=== PATIENT | female | born 1975 | race Caucasian/White ===

== ENCOUNTER 2020-11-14 18:18 | Emergency (ER) | payer OTHER, SELFPAY ==
[2020-11-14 18:29] VITALS: BP 131/93; PULSE 90; RESP 16; TEMP 36.3; O2SAT 100
--- NOTE | 2020-11-14 18:37 | ED.URI ---
HPI - URI/Sore Throat General Chief Complaint: Upper Respiratory Infection Stated Complaint: Cough,Runny nose,headache Time Seen by Provider: 11/14/20 18:43 Source: patient and RN notes reviewed Mode of arrival: ambulatory Limitations: no limitations History of Present Illness HPI Narrative: 44-year-old female presents with concern for 8-day history of sinus congestion, drainage, pressure, ear pain, cough. Reports 3 days ago she had fever, body aches, chills. Has not had a fever since then. Reports she is taking [id number] medication such as DayQuil and NyQuil with little relief. Reports she has had 2 negative Covid test. She has not been vaccinated for Covid. She denies shortness of breath, trouble breathing. MD elicited complaint: cough Related Data Allergies Allergy/AdvReac Type Severity Reaction Status Date / Time No Known Allergies Allergy Mild Unverified 07/21/11 15:35 Review of Systems Review of Systems: CONSTITUTIONAL: Reports malaise. Denies chills, sweats, or fever. EYES: Denies visual changes, redness, or discharge. ENT: Reports rhinorrhea, congestion, sinus pain, otalgia. Denies sore throat. CARDIOVASCULAR: Denies chest pain, palpitations, or edema. RESPIRATORY: Reports persistent cough. Denies dyspnea. GASTROINTESTINAL: Denies abdominal pain, nausea, vomiting, diarrhea SKIN: Denies rash or itching. MUSCULOSKELETAL: Denies myalgia. NEUROLOGIC: Reports headache. All systems reviewed & are unremarkable except as noted in HPI and below PMFSH Comments At time of signature, agree with nursing past medical, surgical, social and family history. There is no relevant family history pertinent to the presenting complaint Exam Narrative: GENERAL: Well-appearing, well-nourished, and in no acute distress. HEAD: Normocephalic EYES: PERRLA, conjunctivae clear ENT: Nares clear, turbinates erythematous. Mucous membranes moist. TM pearly garcia with dull light reflex bilaterally; no tragal tenderness. Oropharynx not erythematous without lesions. Tonsils not enlarged and without exudate, no drooling, no hoarseness, no trismus, uvula midline. NECK: Supple. No lymphadenopathy CHEST: Scattered rhonchi that mostly clears with coughing, scattered inspiratory and expiratory wheeze, breath sounds equal. No rales, or stridor. No respiratory distress, speaks in full sentences. HEART: Regular rate and rhythm. No murmur heard. SKIN: Warm, dry, no rash. NEURO: Alert and oriented x3. PSYCH: Normal mood and affect Course Course Emergency Course: Patient is aware of diagnosis, understands and agrees to treatment plan. Anticipatory guidance given. Patient agrees to follow-up as directed and is aware of reasons to seek care at the emergency department. Portions of this record may have been created with voice recognition software Vital Signs Vital signs: Vital Signs Temperature 97.3 F L 11/14/20 18:29 Pulse Rate 90 11/14/20 18:29 Respiratory Rate 16 11/14/20 18:29 Blood Pressure 131/93 H 11/14/20 18:29 Pulse Oximetry 100 11/14/20 18:29 Temperature 97.3 F L 11/14/20 18:29 Pulse Rate 90 11/14/20 18:29 Respiratory Rate 16 11/14/20 18:29 Blood Pressure 131/93 H 11/14/20 18:29 Pulse Oximetry 100 11/14/20 18:29 Reviewed. Patient has been instructed to follow up with her primary care provider within the next week regarding her elevated blood pressure today. MDM - URI/Sore Throat MDM Narrative Medical decision making narrative: Differential diagnosis considered: Simon virus, strep pharyngitis, allergic rhinitis, upper respiratory tract infection, sinusitis, rhinosinusitis, nasopharyngitis. viral pharyngitis, otitis media, otitis externa, pneumonia, bronchitis, viral cough syndrome, viral syndrome, and influenza. Exam findings show no acute concerns or changes; patient is non-toxic appearing and is in no distress. Patient is appropriate for outpatient treatment and follow-up. Critical Care Time Critical Care Ti
== END 2020-11-14 18:54 | disposition home or self-care (01) ==
PROVIDERS: Emergency Provider Nurse Practitioner
DX: J32.9 Chronic sinusitis, unspecified (principal); J40 Bronchitis, not specified as acute or chronic
CPT/HCPCS: 99213; G0463

== ENCOUNTER 2022-02-08 13:21 | Emergency (ER) | payer OTHER, SELFPAY ==
[2022-02-08 13:29] VITALS: BP 128/67; PULSE 92; RESP 18; TEMP 36.9; O2SAT 97
--- NOTE | 2022-02-08 13:50 | ED.GENADULT ---
HPI - General Adult General Chief complaint: Unspecified Stated complaint: left side pain/sob Time Seen by Provider: 02/08/22 13:50 Source: patient, RN notes reviewed and old records reviewed Mode of arrival: ambulatory Limitations: no limitations History of Present Illness HPI narrative: 46-year-old female presents to the [facility] with complaints left side pain, left flank pain that started 2-3 days ago and has been gradually getting worse. Patient is also reporting shortness of breath. To go home test for COVID a week ago and states that she was positive. Her 5 day quarantine was over yesterday. Reports nausea and headache as well. No fevers. Onset (ago): day(s) (2-3) Related Data Home Medications Medication Instructions Recorded Confirmed No Home Medications 02/08/22 02/08/22 Allergies Allergy/AdvReac Type Severity Reaction Status Date / Time No Known Allergies Allergy Mild Unverified 02/08/22 16:13 Review of Systems Review of Systems: All systems reviewed & are unremarkable except as noted in HPI and below Constitutional: Constitutional: Reports no additional constitutional complaints Eyes: Eyes: Reports no additional eye complaints ENT: Reports system reviewed and no additional complaints, except as documented Cardiovascular: Cardiovascular: Reports no additional cardiovascular complaints, Denies chest pain and Denies dyspnea Respiratory: Respiratory: Reports as per HPI, Reports no additional respiratory complaints, Denies chest congestion, Reports cough and Reports dyspnea Gastrointestinal: Gastrointestinal: Reports as per HPI, Reports no additional gastrointestinal complaints, Reports abdominal pain (Left flank, left-sided abdominal upper and lower), Denies nausea and Denies vomiting Musculoskeletal: Musculoskeletal: Reports no additional musculoskeletal complaints Integumentary/Breasts: Skin/Breast: Reports system reviewed and no additional complaints, except as docu Neurologic: Reports system reviewed and no additional complaints, except as documented Psychiatric: Psychiatric: Reports no additional psychiatric complaints Allergic/Immunologic: Allergic/Immunologic: Reports no additional allergic/immunologic complaints PMFSH Surgical History Surgical History Hx of cholecystectomy Social History Social History Gender identity (if verbalized by the patient): Female Comments At the time of my signature, I reviewed and agree with the nursing past medical, surgical, social, and family history. There is no relevant family history pertinent to the patient complaint. Exam Const: General: cooperative, well developed, alert, in distress mild (Pain), ill appearing acutely, uncomfortable, well groomed, average body habitus and well nourished Nutritional Appearance: well nourished and obese Orientation/consciousness: patient oriented x3 Limitations: no limitations HENMT: Head: normal to inspection Ears: hearing grossly normal bilaterally and external ears normal Face/Nose/Sinus: Normal external nose present, Normal nares present, Normal nasal mucous membranes and turbinates present and normal facial exam Face and sinus: normal facial exam Mouth: Yes Normal oral and palatal mucosa present, Yes lip normal and Yes moist mucous membranes Throat: posterior oropharynx normal and uvula midline Eyes: General: appearance normal, both eyes and all related structures Alignment and Position: alignment normal Periorbital: periorbital findings normal Conjunctivae: conjunctivae normal Pupils: Equal, round and reactive pupils present EOM: EOMs intact bilaterally Neck: Neck: normal visual inspection, full ROM, no lymphadenopathy and no meningeal signs Chest: Chest palpation & inspection: normal inspection of the chest Resp: Effort & Inspection: normal respiratory effort and able to speak in complete
== END 2022-02-08 14:02 | disposition short-term general hospital (02) ==
LOC: EXPCOLL 13:23
PROVIDERS: Emergency Provider Nurse Practitioner
DX: R10.9 Unspecified abdominal pain (principal); Z86.16 Personal history of COVID-19
CPT/HCPCS: 99212; G0463

== ENCOUNTER 2022-02-08 15:45 | Emergency (ER) | payer OTHER, SELFPAY ==
--- NOTE | ~2022-02-08 | CT_ITS ---
EXAMINATION: CTA chest PE abdomen pel DATE: 02/08/2022 22:32 CLINICAL SALES CONSULTANT INDICATION: Chest tightness. Covid. TECHNIQUE: Computed tomographic angiography (CTA) of the chest, abdomen, and pelvis was performed wit h 100 mL Omnipaque-350 intravenous contrast. The dose-length product was 2229.38 mGy-cm. Maximum inte nsity projection 3D-reconstructions of the aorta and other arteries were constructed by the technolog ist on a separate workstation. Automated exposure control and iterative reconstruction technique were employed. COMPARISON: None. FINDINGS: CHEST CTA: Heart size is normal. No thoracic lymphadenopathy. No significant pleural or pericardial effusion. St udy is technically adequate without evidence for pulmonary embolism. No endobronchial lesions. There are patchy groundglass densities in the lower lobes, consistent with pneumonia. No endobronchial lesi ons. No pneumothorax. Aorta is within normal limits without aneurysm or dissection. ABDOMEN AND PELVIS CTA: Status post cholecystectomy with expected prominence of the bile ducts. The spleen, liver, pancreas, adrenal glands and kidneys are unremarkable. Nonobstructive bowel gas pattern. Punctate focus of nond ependent gas in the bladder, likely from recent instrumentation. Correlate clinically. There is acute diverticulitis of the descending colon without evidence for perforation or abscess. No significant v ascular abnormality. No lymphadenopathy. Mild lumbar spondylosis. No suspicious lytic or blastic lesi ons. IMPRESSION: 1. No evidence for pulmonary embolism. 2: Patchy predominantly lower lobe groundglass densities, consistent with pneumonia. 3: Acute uncomplicated diverticulitis of the descending colon. Reviewed, dictated and finalized at location A. ICAL SALES CONSULTANT IMPRESSION: 1. No evidence for pulmonary embolism. 2: Patchy predominantly lower lobe groundglass densities, consistent with pneum onia. 3: Acute uncomplicated diverticulitis of the descending colon.
[2022-02-08 16:09] VITALS: BP 131/75; PULSE 89; RESP 18; TEMP 36.9; O2SAT 98
[2022-02-08 16:31] LABS: Appearance Urine Slightly Cloudy (Clear); Bilirubin Urine Negative (Negative); Blood Urine Negative (Negative); Color Urine Yellow (Yellow); Glucose Urine UA Negative (Negative); Ketones Urine Negative (Negative); Leukocyte Esterase Ur Negative LEU/UL (Negative); Nitrate Urine Negative (Negative); Protein Urine 1+ mg/dL (Negative); Specific Grav Ur >= 1.030 (1.001-1.035); Urobilinogen Urine 0.2 mg/dL (<2.0)
[2022-02-08 16:37] LABS: Bacteria Urine Trace /hpf; Mucus Urine Heavy /lpf; Squamous Epithelial Cell Urine Many /hpf (Few)
[2022-02-08 16:40] LABS: Add Urine Microscopic? YES
[2022-02-08 16:44] LABS: Basophils Percent Auto 0.3 % (0.2-1.2); Eosinophils Absolute Auto 0.1 K/mm3 (0-0.3); Eosinophils Percent Auto 0.9 % (0-4.4); Hematocrit 50.2 % (37.0-47.0); Hemoglobin 16.4 g/dL (12.0-15.0); Immature Granulocyte Absolute 0.03 K/mm3 (0.00-0.031); Immature Granulocyte Percent A 0.3 % (0-0.5); Lymphocytes Absolute Auto 2.75 K/mm3 (0.9-3.2); Lymphocytes Percent Auto 30.8 % (18.3-44.2); Mean Corpuscular HGB Conc 32.7 g/dl (32-36); Mean Corpuscular Hemoglobin 30.6 pg (26-34); Mean Corpuscular Volume 93.7 fl (80-100); Monocytes Absolute Auto 0.6 K/mm3 (0.1-0.6); Monocytes Percent Auto 6.3 % (2.6-8.5); Neutrophils Absolute Auto 5.5 K/mm3 (1.3-6.7); Neutrophils Percent Auto 61.4 % (45.5-73.1); Platelet Count Result 250 k/mm3 (150-375); Red Blood Count 5.36 M/mm3 (4.2-5.4); Red Cell Distribution Width 14.7 % (11.5-14.5); White Blood Count 8.9 K/mm3 (4.5-10.0)
[2022-02-08 17:01] LABS: Alanine Aminotransferase 22 U/L (6-35); Albumin Level 4.3 g/dL (3.5-5.1); Alkaline Phosphatase 98 U/L (38-126); Anion Gap 3 mmol/L (8-16); Aspartate Amino Transferase 27 U/L (14-36); Bilirubin,Total 0.4 mg/dL (0.2-1.3); Blood Urea Nitrogen 17 mg/dL (7-17); Calcium 8.9 mg/dL (8.4-10.2); Carbon Dioxide 31 mmol/L (22-30); Chloride 104 mmol/L (98-107); Estimated CRCL calculation 115 ml/min; Estimated Glomerular Filt Rate > 60; Glucose 95 mg/dL (65-110); Lipase 32 U/L (23-300); Potassium 4.1 mmol/L (3.4-5.0); Sodium 138 mmol/L (137-145)
[2022-02-08 20:23] VITALS: BP 135/85; PULSE 83; RESP 16; TEMP 36.8; O2SAT 100
[2022-02-08] MEDS: SODIUM CHLORIDE 0.9% IV 1,000 ML 999 ML IV CONT (20:28)
--- NOTE | 2022-02-08 20:46 | ED.ABDPAIN ---
HPI - Abdominal Pain General Chief Complaint: Abdominal Pain <KIRIT Mukherjee Last Filed: 02/08/22 22:58> Stated Complaint: L SIDED ABD PAIN COVID+ 02/03/22 <KIRIT Mukherjee Last Filed: 02/08/22 22:58> Time Seen by Provider: 02/08/22 20:12 <KIRIT Mukherjee Last Filed: 02/08/22 22:58> Source: patient <KIRIT Mukherjee Last Filed: 02/08/22 22:58> Mode of arrival: ambulatory <KIRIT Mukherjee Last Filed: 02/08/22 22:58> Limitations: no limitations <KIRIT Mukherjee Last Filed: 02/08/22 22:58> History of Present Illness HPI narrative: This is a 46 year old female that presents to the ER for left sided abdominal pain present over the last 2 days. Reports she was diagnosed with COVID about 1 week ago. Reports headache, fever, chest tightness, nausea. Reports over the last 2 days she has been experiencing sharp left sided abdominal pain. Worse with breathing and movement. She has not taken anything for pain yet today. She was seen at Urgent care and sent to the ER for further evaluation. Denies vomiting or diarrhea. <KIRIT Mukherjee Last Filed: 02/08/22 22:58> Related Data Allergies/Adverse Reactions: Allergies Allergy/AdvReac Type Severity Reaction Status Date / Time No Known Allergies Allergy Mild Unverified 02/08/22 16:13 <Keshia Solorzano PA-C - Last Filed: 02/08/22 22:58> Review of Systems Review of Systems: CONSTITUTIONAL: Reports fever EYES: Denies redness, or discharge. ENT: Reports congestion CARDIOVASCULAR: Denies chest pain, or edema. RESPIRATORY: Reports dyspnea. GASTROINTESTINAL: Reports abdominal pain, nausea. Denies vomiting, or diarrhea. GENITOURINARY: Denies dysuria SKIN: Denies rash MUSCULOSKELETAL: Reports myalgia. NEUROLOGIC: Reports headache <KIRIT Mukherjee Last Filed: 02/08/22 22:58> All systems reviewed & are unremarkable except as noted in HPI and below <Keshia Solorzano PA-C - Last Filed: 02/08/22 22:58> PMFSH Past Medical History Medical History: Medical History (Updated 02/09/22 @ 00:01 by Maximiliano Martinez) No active medical problems <Keshia Solorzano PA-C - Last Filed: 02/08/22 22:58> Surgical History Surgical History: Surgical History Hx of cholecystectomy <Keshia Solorzano PA-C - Last Filed: 02/08/22 22:58> Social History Social History: Social History (Updated 02/08/22 @ 20:50 by Keshia Solorzano PA-C) Substance use: current Substance use type: marijuana Gender identity (if verbalized by the patient): Female <Keshia Solorzano PA-C - Last Filed: 02/08/22 22:58> Exam Narrative: GENERAL: Well-appearing, well-nourished, and in no acute distress. HEAD: Normocephalic, atraumatic. EYES: EOMI. CHEST: Clear to auscultation. No respiratory distress. No wheezes rales or rhonchi HEART: Regular rate and rhythm. No murmur heard. Normal peripheral pulses. ABDOMEN: Soft, nondistended, normal active bowel sounds. Tender to palpation in the left side of the abdomen, without guarding. No CVA tenderness EXTREMITIES: Normal range of motion. No edema. SKIN: Warm, dry, no rash. NEURO: No focal deficits. Alert and oriented x3. 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 I have had pepr-[id number] time with the patient. Physical exam revealed some tenderness on the left portion of the abdomen. CT has been ordered. Additionally patient has been complaining of some chest tightness and had recent COVID-19 infection. D-dimer is elevated so CT PE was ordered which was negative for pulmonary embolism. Her CT and pelvis showed uncomplicated diverticulitis. She would be a good candidate for outpatient management. She rad
[2022-02-08 21:55] LABS: Prothrombin Time 12.8 Seconds (11.1-14.7)
[2022-02-08 21:56] LABS: Partial Thromboplastin Time 26.9 SECONDS (22.3-36.8)
[2022-02-08 22:01] LABS: D Dimer 0.92 ug/mL (<0.48)
[2022-02-08 22:17] LABS: Troponin I < 0.012 ng/mL (0.000-0.034)
[2022-02-08] MEDS: AMOXICILLIN/CLAVULANATE K 875-125 MG TAB 1 TABLET PO (23:16)
[2022-02-08 23:17] VITALS: BP 123/80; PULSE 74; RESP 16; O2SAT 97
== END 2022-02-08 23:18 | disposition home or self-care (01) ==
PROVIDERS: Emergency Medicine; Physician Assistant; Emergency Provider Emergency Medicine
DX: U07.1 COVID-19 (principal); J18.9 Pneumonia, unspecified organism; K57.32 Diverticulitis of large intestine without perforation or abscess without bleeding
CPT/HCPCS: 36415; 71275; 74177; 80053; 81001; 81025; 83690; 84484; 85025; 85380; 85610; 85730; 96361; 96365; 99284; A9270; J0131; J7030; Q9967

== ENCOUNTER → 2022-02-19 08:03 | Outpatient (CLI) | payer OTHER, SELFPAY ==
--- NOTE | ~2022-02-19 | XR_ITS ---
Clinical Indication: Pneumonia PA and lateral views of the chest: Comparison: 05/26/2011 Findings: The lungs are clear, without evidence of focal consolidation or pleural effusion. Cardiome diastinal silhouette is within normal limits. Bones and soft tissues are unremarkable. Impression: Normal chest. Reviewed, dictated and finalized at location [] UALIZATION CONSULTANT Impression: Normal chest.
--- NOTE | ~2022-02-19 | XR_ITS ---
EXAMINATION: XR cervical spine 4-5V DATE: 02/19/2022 08:31 INDICATION: Neck pain. TECHNIQUE: 5 views of cervical spine were obtained. COMPARISON: Cervical spine radiographs 05/26/2011 FINDINGS: There is kyphosis of cervical spine. There is 2 mm retrolisthesis of C5 on C6. There is 3 d egrees levocurvature of cervicothoracic spine. Vertebral body heights are normal. There is mildly dec reased disc height at C4-C5, moderately decreased disc height at C5-C6, and mildly decreased disc hei ght at C6-C7. There is multilevel uncovertebral joint osteoarthritis, severe on the right from C4-C5 through C6-C7 and on the left at C5-C6. There is multilevel mild facet joint osteoarthritis. There is mild central canal stenosis at C5-C6. No prevertebral soft tissue swelling. IMPRESSION: 1. Moderate cervical spondylosis. Reviewed, dictated and finalized at location A. REHAIRER
== END ==
PROVIDERS: PCP Emergency Medicine; Visit Provider Emergency Medicine
DX: J18.9 Pneumonia, unspecified organism (principal); M47.892 Other spondylosis, cervical region
CPT/HCPCS: 71046; 72050

== ENCOUNTER → 2022-03-21 10:36 | Outpatient (CLI) | payer OTHER, SELFPAY ==
--- NOTE | ~2022-03-21 | XR_ITS ---
XR knee LT min 4V DATE: 03/21/2022 11:06 INDICATION: Diffuse bilateral knee pain TECHNIQUE: 4 views COMPARISON: None FINDINGS: There is moderate tricompartment osteoarthritis including periarticular spurring at all 3 c ompartments. Medial and lateral compartment knee joint spaces are relatively preserved. No radiopaque intra-articular loose body or chondrocalcinosis is detected. There is mild suprapatellar knee joint effusion. No fracture, dislocation, periosteal reaction or bon e destruction. IMPRESSION: Moderate tricompartment osteoarthritis Small suprapatellar knee joint effusion Reviewed, dictated and finalized at location B. INSTRUCTOR
--- NOTE | ~2022-03-21 | XR_ITS ---
XR knee RT min 4V DATE: 03/21/2022 11:06 INDICATION: Bilateral knee pain TECHNIQUE: 4 views COMPARISON: None FINDINGS: There is mild periarticular spurring at the medial and lateral compartments but medial late ral compartment joint spaces appear well preserved. No fracture or dislocation or joint effusion. No radiopaque intra-articular loose body or chondrocalc inosis. No periosteal reaction or bone destruction. IMPRESSION: Mild osteoarthritis Reviewed, dictated and finalized at location B. MECHANIC IMPRESSION: Mild osteoarthritis
== END ==
PROVIDERS: PCP Emergency Medicine; Visit Provider Emergency Medicine
DX: M17.0 Bilateral primary osteoarthritis of knee (principal); M25.462 Effusion, left knee
CPT/HCPCS: 73564

== ENCOUNTER 2022-06-25 09:58 | Emergency (ER) | payer OTHER, SELFPAY ==
--- NOTE | ~2022-06-25 | XR_ITS ---
EXAMINATION: XR chest 2V DATE: 06/25/2022 10:35 INDICATION: Cough and shortness of breath. TECHNIQUE: Frontal and lateral views of the chest were obtained. COMPARISON: Chest 2 views 02/19/2022 FINDINGS: The chest demonstrates clear lungs without pneumonia, pleural effusion, or pneumothorax. Th e heart size is normal. Surgical clips in the right upper quadrant are likely from cholecystectomy. IMPRESSION: 1. No acute cardiopulmonary disease. Reviewed, dictated and finalized at location A.
[2022-06-25 10:11] VITALS: BP 137/90; PULSE 74; RESP 18; TEMP 36.8; O2SAT 97
--- NOTE | 2022-06-25 10:25 | ED.URI ---
HPI - URI/Sore Throat General Chief Complaint: Upper Respiratory Infection Stated Complaint: Cough Time Seen by Provider: 06/25/22 10:25 Source: patient Mode of arrival: ambulatory Limitations: no limitations History of Present Illness HPI Narrative: 46-year-old female presents with complaint of cough, shortness of breath with exertion, chest tightness. Reports that she had a viral upper respiratory infection approximately 3 weeks ago and has been coughing since then. States that she has been lying in bed for approximately 3-4 weeks related to gastritis, colitis, diverticulitis. Is seeing a GI specialist. Is now concerned that she developed ammonia due to having URI and lying around in bed. Afebrile. Would like a chest x-ray. All systems reviewed and negative except as noted above. Related Data Home Medications Medication Instructions Recorded Confirmed atorvastatin 20 mg tablet 20 mg DIRECTED 06/25/22 06/25/22 dicyclomine 10 mg capsule 10 mg DIRECTED 06/25/22 06/25/22 levothyroxine 50 mcg tablet 50 mcg DIRECTED 06/25/22 06/25/22 pantoprazole 40 mg tablet,delayed 40 mg PO DIRECTED 06/25/22 06/25/22 release paroxetine HCl 10 mg tablet 10 mg PO DIRECTED 06/25/22 06/25/22 Allergies Allergy/AdvReac Type Severity Reaction Status Date / Time No Known Allergies Allergy Mild Unverified 02/08/22 16:13 Review of Systems Review of Systems: CONSTITUTIONAL: Denies fever, chills, or sweats. EYES: Denies visual changes, redness, or discharge. ENT: Denies rhinorrhea, congestion, sore throat, or otalgia. CARDIOVASCULAR: Denies chest pain, palpitations, or edema. RESPIRATORY: Reports cough, chest tightness, dyspnea with exertion. GASTROINTESTINAL: Denies abdominal pain, nausea, vomiting, or diarrhea. GENITOURINARY: Denies dysuria or hematuria. SKIN: Denies rash or itching. MUSCULOSKELETAL: Denies back pain, joint pain, or myalgia. NEUROLOGIC: Denies headache, numbness, or weakness. PSYCHIATRIC: Denies anxiety or depression. All other systems reviewed are negative, except as documented in HPI. [facility] Past Medical History Medical History (Updated 06/25/22 @ 10:59 by Mervat Berkowitz NP) No active medical problems Surgical History Surgical History Hx of cholecystectomy Social History Social History (Updated 02/08/22 @ 20:50 by Keshia Solorzano PA-C) Substance use: current Substance use type: marijuana Living arrangements: with family Gender identity (if verbalized by the patient): Female Comments At time of signature, agree with nursing past medical, surgical, social and family history. There is no relevant family history pertinent to the presenting complaint. Exam Narrative: GENERAL: This is a well-nourished, well-developed patient, in no apparent distress. HEAD: normocephalic, atraumatic. EYES: PERRL. Sclera clear/white. Vision is grossly intact. EARS: External ears normal, auditory canals clear and without drainage, TMs normal without perforation. Hearing grossly intact. NOSE: External nose normal with no obvious nasal discharge, nares without redness, no rhinorrhea. THROAT: Mucous membranes moist, posterior pharynx clear. NECK: Neck supple, non-tender without lymphadenopathy, masses or thyromegaly. CARDIOVASCULAR: Regular rate and rhythm without murmurs, gallops, or rubs. RESPIRATORY: decreased on auscultation to middle and lower right lung. No wheezes, rales or rhonchi. SKIN: warm, Dry, intact with no suspicious lesions or rash, good texture and turgor. NEURO: awake, alert, and oriented to person, place and time. There were no obvious focal neurologic abnormalities. EXTREMITIES: No joint tenderness, effusion, or edema noted. Course Course Level of Care: Express Care Visit Vital Signs Vital signs: Vital Signs Temperature 36.8 C 06/25/22 10:11 Pulse Rate 74 06/25/22 10:11 Respiratory Rate 18 06/25/22 10
== END 2022-06-25 11:12 | disposition home or self-care (01) ==
PROVIDERS: Emergency Provider Nurse Practitioner Family; PCP Emergency Medicine
DX: J20.9 Acute bronchitis, unspecified (principal); F12.90 Cannabis use, unspecified, uncomplicated
CPT/HCPCS: 71046; 99213; G0463

== ENCOUNTER 2022-07-24 10:45 | Emergency (ER) | payer OTHER, SELFPAY ==
--- NOTE | ~2022-07-24 | CT_ITS ---
EXAMINATION: CT abdomen pelvis w con DATE: 07/24/2022 13:42 INDICATION: Left abdominal pain TECHNIQUE: Computed tomography (CT) of the abdomen and pelvis was performed with 100 mL Omnipaque-350 intravenous contrast. Automated exposure control and iterative reconstruction technique were employe d. The dose-length product was 1451.89 mGy-cm. COMPARISON: Chest CT dated 02/08/2022 FINDINGS: Mild discoid atelectasis in the lingula. Heart size normal. No pericardial or pleural effusion. Uncha nged 1.3 cm cyst along the cephalad capsule of the liver. Unchanged mild intra and extra hepatic bili franklin ductal dilation likely related to prior cholecystectomy with surgical clips the gallbladder fossa . Pancreas, spleen, bilateral adrenal glands and kidneys are normal. Mild scattered diverticulosis wi thout adjacent from trace stranding to suggest diverticulitis. Small bowel and appendix are normal. B ladder, anteverted uterus and bilateral adnexa are unremarkable. No free intraperitoneal gas or fluid . No pathologically enlarged abdominal or pelvic lymphadenopathy. Mild scattered degenerative skeleta l changes. Chronic appearing mild central endplate compression fracture at L3. IMPRESSION: 1. No acute intra-abdominal/pelvic process. Reviewed, dictated and finalized at location A.
[2022-07-24 10:49] VITALS: BP 157/124; PULSE 81; RESP 16; TEMP 36.4; O2SAT 100
[2022-07-24 11:08] LABS: Basophils Percent Auto 0.4 % (0.2-1.2); Eosinophils Absolute Auto 0.1 K/mm3 (0-0.3); Eosinophils Percent Auto 1.5 % (0-4.4); Hematocrit 43.6 % (37.0-47.0); Hemoglobin 14.7 g/dL (12.0-15.0); Immature Granulocyte Absolute 0.01 K/mm3 (0.00-0.031); Immature Granulocyte Percent A 0.1 % (0-0.5); Lymphocytes Absolute Auto 2.57 K/mm3 (0.9-3.2); Lymphocytes Percent Auto 38.4 % (18.3-44.2); Mean Corpuscular HGB Conc 33.7 g/dl (32-36); Mean Corpuscular Hemoglobin 30.4 pg (26-34); Mean Corpuscular Volume 90.3 fl (80-100); Mean Platelet Volume 9.5 fl (7.4-10.4); Monocytes Absolute Auto 0.4 K/mm3 (0.1-0.6); Monocytes Percent Auto 6.1 % (2.6-8.5); Neutrophils Absolute Auto 3.6 K/mm3 (1.3-6.7); Neutrophils Percent Auto 53.5 % (45.5-73.1); Platelet Count Result 329 k/mm3 (150-375); Red Blood Count 4.83 M/mm3 (4.2-5.4); Red Cell Distribution Width 14.4 % (11.5-14.5); White Blood Count 6.7 K/mm3 (4.5-10.0)
[2022-07-24 11:17] LABS: Alanine Aminotransferase 38 U/L (6-35); Albumin Level 4.2 g/dL (3.5-5.1); Alkaline Phosphatase 96 U/L (38-126); Anion Gap 6 mmol/L (8-16); Aspartate Amino Transferase 40 U/L (14-36); Bilirubin,Total 0.5 mg/dL (0.2-1.3); Blood Urea Nitrogen 13 mg/dL (7-17); Calcium 8.9 mg/dL (8.4-10.2); Carbon Dioxide 26 mmol/L (22-30); Chloride 105 mmol/L (98-107); Estimated CRCL calculation 130 ml/min; Estimated Glomerular Filt Rate > 60; Glucose 102 mg/dL (65-110); Lipase 62 U/L (23-300); Sodium 137 mmol/L (137-145)
[2022-07-24 11:43] VITALS: BP 122/72; PULSE 69; PULSE 73; RESP 14; RESP 21; O2SAT 98; O2SAT 99
[2022-07-24 11:47] VITALS: BP 122/72; PULSE 71; RESP 20; O2SAT 91
[2022-07-24 11:49] LABS: Appearance Urine Clear (Clear); Bilirubin Urine Negative (Negative); Blood Urine Negative (Negative); Color Urine Yellow (Yellow); Glucose Urine UA Negative (Negative); Ketones Urine Negative (Negative); Leukocyte Esterase Ur Negative LEU/UL (Negative); Nitrate Urine Negative (Negative); Protein Urine Negative (Negative); Specific Grav Ur 1.018 (1.001-1.035); Urobilinogen Urine 0.2 mg/dL (<2.0); pH Urine 5.5 (5.0-9.0)
[2022-07-24 11:52] LABS: Add Urine Microscopic? NO
[2022-07-24 12:02] VITALS: BP 122/68; PULSE 68; RESP 19; O2SAT 99
--- NOTE | 2022-07-24 12:15 | ED.ABDPAIN ---
HPI - Abdominal Pain General Chief Complaint: Abdominal Pain Stated Complaint: sob, abd pain Time Seen by Provider: 07/24/22 12:14 Source: patient Mode of arrival: ambulatory Limitations: no limitations History of Present Illness HPI narrative: Patient is 46 years old white female came to the emergency room by private car complaining of multiple symptoms since February 2022 including hair fall, trouble sleeping, body burning from inside out, intermittent left abdominal pain and different part of the abdomen, weak, does not work because feeling weird, intermittent bowel movement disorder including mucous, diarrhea, constipation, incontinence. Patient was seen numerous of time with different physician and different emergency room, last emergency room was [facility] 2 weeks ago and was told that her blood work-up looks okay. Patient feeling tired of feeling tired and would like an answer. Currently her main complaint is abdominal pain mainly on the left side. She believes that she have increased antibodies to the thyroid gland although her TSH is normal. Patient is telling me that she had EGD and colonoscopy with normal results. Also telling me that she have history of IBS and a lot of stress Related Data Home Medications Medication Instructions Recorded Confirmed atorvastatin 20 mg tablet 20 mg DIRECTED 06/25/22 06/25/22 dicyclomine 10 mg capsule 10 mg DIRECTED 06/25/22 06/25/22 levothyroxine 50 mcg tablet 50 mcg DIRECTED 06/25/22 06/25/22 pantoprazole 40 mg tablet,delayed 40 mg PO DIRECTED 06/25/22 06/25/22 release paroxetine HCl 10 mg tablet 10 mg PO DIRECTED 06/25/22 06/25/22 Allergies Allergy/AdvReac Type Severity Reaction Status Date / Time No Known Allergies Allergy Mild Verified 07/24/22 11:48 Review of Systems Review of Systems: 60 All systems reviewed & are unremarkable except as noted in HPI and below PMFSH Past Medical History Medical History No active medical problems Surgical History Surgical History Hx of cholecystectomy Social History Social History Substance use: current Substance use type: marijuana Living arrangements: with family Gender identity (if verbalized by the patient): Female Exam Narrative: General appearance: Well-developed, well-nourished Skin: Normal color Head: Normocephalic, nontraumatic Eyes: Clear conjunctiva ENT: Oropharynx normal, ears normal, nose normal Neck: Supple, nontender Chest and respiratory: Airway patent, no respiratory distress, no accessory muscle use Heart: Regular rate/rhythm Abdomen: Soft, mild diffuse abdominal pain mainly on the left side, no guarding or rebound, no organomegaly, quiet bowel sounds Vascular: Normal peripheral pulses, normal capillary refill. Musculoskeletal: Normal range of motion, nontender back Neurologic: Alert and oriented ?3, PLASTIC OUTFITTER is normal as tested, no gross motor deficit Course Vital Signs Vital signs: Vital Signs Temperature 36.4 C 07/24/22 10:49 Pulse Rate 81 07/24/22 10:49 Respiratory Rate 16 07/24/22 10:49 Blood Pressure 157/124 H 07/24/22 10:49 Pulse Oximetry 100 07/24/22 10:49 Oxygen Delivery Room Air 07/24/22 10:49 Temperature 36.4 C 07/24/22 10:49 Pulse Rate 66 07/24/22 12:47 Respiratory Rate 20 07/24/22 12:47 Blood Pressure 131/75 07/24/22 12:47 Pulse Oximetry 96 07/24/22 12:47 Oxygen Delivery Room Air 07/24/22 10:49 MDM - Abdominal Pain MDM Narrative Medical decision making narrative: Radha
[2022-07-24 12:47] VITALS: BP 131/75; PULSE 66; RESP 20; O2SAT 96
== END 2022-07-24 14:58 | disposition home or self-care (01) ==
PROVIDERS: Family Medicine; Emergency Provider Emergency Medicine; PCP Emergency Medicine
DX: R10.9 Unspecified abdominal pain (principal); K58.9 Irritable bowel syndrome, unspecified; Z90.49 Acquired absence of other specified parts of digestive tract
CPT/HCPCS: 36415; 74177; 80053; 81003; 81025; 83690; 84443; 85025; 99284; Q9967

== ENCOUNTER 2022-07-28 11:34 | Outpatient (CLI) | payer OTHER, SELFPAY ==
--- NOTE | ~2022-07-28 | MM_ITS ---
EXAMINATION: MM screening leslie BI w eder HISTORY: Screening mammogram TECHNIQUE: Craniocaudal and mediolateral oblique 3-D tomosynthesis images were obtained and synthetic 2-D images were generated. CAD analysis was submitted and interpreted. COMPARISON: No prior mammogram is available for comparison at this institution. BREAST PARENCHYMAL COMPOSITION: The breasts are almost entirely fatty. FINDINGS: There is no evidence of suspicious mass, calcification, or architectural distortion to sugg est malignancy in either breast. There has been no suspicious interval change. IMPRESSION: 1. No mammographic evidence of malignancy. 2. Recommend routine screening mammography in one year. BI-RADS Category 1: Negative Reviewed, dictated and finalized at location A.
== END 2022-07-28 11:35 | disposition home or self-care (01) ==
PROVIDERS: PCP Emergency Medicine; Visit Provider Emergency Medicine
DX: Z12.31 Encounter for screening mammogram for malignant neoplasm of breast (principal)
CPT/HCPCS: 77063; 77067

== ENCOUNTER 2022-08-05 09:15 | Emergency (ER) | payer OTHER, SELFPAY ==
--- NOTE | ~2022-08-05 | XR_ITS ---
XR knee RT min 4V DATE: 08/05/2022 10:13 INDICATION: Bilateral knee pain for weeks, greater on the right TECHNIQUE: 4 views COMPARISON: 03/21/2022 right knee FINDINGS: Mild tricompartment osteophytosis. Mild suprapatellar knee joint effusion. No fracture or dislocation, periosteal reaction or bone destruction. No radiopaque intra-articular lo ose body or chondrocalcinosis. IMPRESSION: Small knee joint effusion Mild tricompartment osteoarthritis Reviewed, dictated and finalized at location A.
--- NOTE | ~2022-08-05 | XR_ITS ---
XR knee LT min 4V DATE: 08/05/2022 10:13 INDICATION: Bilateral knee pain TECHNIQUE: 4 views COMPARISON: 03/21/2022 left knee FINDINGS: Small suprapatellar left knee joint effusion. Osteopenia. There is tricompartment osteophytosis, involving particularly the patellofemoral and lateral compartm ents, but medial lateral compartment joint spaces are relatively well preserved. No fracture or dislocation, periosteal reaction or bone destruction, radiopaque intra-articular loose body or chondrocalcinosis. IMPRESSION: Small knee joint effusion Tricompartment osteophytosis Osteopenia Reviewed, dictated and finalized at location A.
[2022-08-05 09:31] VITALS: BP 149/95; PULSE 80; RESP 16; TEMP 36.6; O2SAT 98
--- NOTE | 2022-08-05 09:49 | ED.BACK ---
HPI - Back Pain/Injury General Chief Complaint: Back Pain/Injury <Marina Higgins PA-C - Last Filed: 08/05/22 15:02> Stated Complaint: back pain <Marina Higgins PA-C - Last Filed: 08/05/22 15:02> Time Seen by Provider: 08/05/22 09:27 <Marina Higgins PA-C - Last Filed: 08/05/22 15:02> History of Present Illness HPI Narrative: 46 y/o F reports for evaluation of chronic abdominal pain and knee pain, worse over the past month. States when she walks it feels like her knees are going to give out. Pt states she has had chronic knee pain since an injury when she was 6 years old, and chronic back pain since she had an epidural 16 years ago. She is also reporting bilateral trapezius tightness. She has been evaluated by multiple ERs in the past month including [facility] and [facility] for abdominal pain and back pain. States she was diagnosed with gastritis and colitis at [facility] on 07/05. She was then evaluated at [facility] ED on 07/[address] results revealed acute intra-abdominal process. There was evidence of a mild chronic L3 compression fracture. Patient states she followed up with her PCP who referred her to orthopedic surgery. States she called to make an appointment with orthopedic surgery, however receptionist scheduler told her they do not treat compression fractures. She has an appointment with her PCP tomorrow to obtain a new referral. Patient states she is concerned that this compression fracture is causing all of her pain. She denies fever, body aches, chills, recent back procedures or surgeries, bladder retention or loss of bladder control, numbness or weakness, paresthesias, saddle anesthesia, chronic steroid use or immunosuppression therapy, urinary complaints. She does endorse 2 episodes of bowel incontinence approximately 07/24 during the time she had diarrhea from colitis. States both times she was in the car, felt herself needing to have a bowel movement, and was unable to get to the bathroom in time. She denies loss of bowel control since. <Marina Higgins PA-C - Last Filed: 08/05/22 15:02> Related Data Home Medications: Home Medications Medication Instructions Recorded Confirmed atorvastatin 20 mg tablet 20 mg DIRECTED 06/25/22 06/25/22 dicyclomine 10 mg capsule 10 mg DIRECTED 06/25/22 06/25/22 levothyroxine 50 mcg tablet 50 mcg DIRECTED 06/25/22 06/25/22 pantoprazole 40 mg tablet,delayed 40 mg PO DIRECTED 06/25/22 06/25/22 release paroxetine HCl 10 mg tablet 10 mg PO DIRECTED 06/25/22 06/25/22 <Marina Higgins PA-C - Last Filed: 08/05/22 15:02> Allergies/Adverse Reactions: Allergies Allergy/AdvReac Type Severity Reaction Status Date / Time No Known Allergies Allergy Mild Verified 08/05/22 09:35 <Marina Higgins PA-C - Last Filed: 08/05/22 15:02> Review of Systems Review of Systems: CONSTITUTIONAL: Denies fever, chills EYES: Denies visual changes, redness, or discharge. ENT: Denies rhinorrhea, congestion, sore throat, or otalgia. CARDIOVASCULAR: Denies chest pain, palpitations, or edema. RESPIRATORY: Denies cough or dyspnea. GASTROINTESTINAL: Denies abdominal pain, nausea, vomiting, or diarrhea. GENITOURINARY: Denies dysuria or hematuria. SKIN: Denies rash or itching. MUSCULOSKELETAL: See HPI NEUROLOGIC: Denies headache, numbness, dizziness, or weakness. PSYCHIATRIC: Denies anxiety or depression. <Marina Higgins PA-C - Last Filed: 08/05/22 15:02> [facility] Past Medical History Medical History: Medical History No active medical problems <Marina Higgins PA-C - Last Filed: 08/05/22 15:02> Surgical History Surgical History: Surgical History Hx of cholecystectomy <Marina Higgins PA-C - Last Filed: 08/05/22 15:02> Social History Social History: Social History (Reviewed
[2022-08-05] MEDS: HYDROcodone/acetaminophen (*CRX) 5-325 MG TABLET 1 TAB PO (10:27)
[2022-08-05] MEDS: methocarbamoL 500 MG TABLET PO (10:27)
== END 2022-08-05 11:05 | disposition home or self-care (01) ==
PROVIDERS: Emergency Provider Physician Assistant; PCP Emergency Medicine
DX: M54.50 Low back pain, unspecified (principal); M17.0 Bilateral primary osteoarthritis of knee; F12.90 Cannabis use, unspecified, uncomplicated; Z79.51 Long term (current) use of inhaled steroids
CPT/HCPCS: 73564; 96372; 99284; A9270; J1100

== ENCOUNTER 2022-11-11 08:57 | Emergency (ER) | payer OTHER, SELFPAY ==
--- NOTE | ~2022-11-11 | CT_ITS ---
EXAMINATION: CT brain wo con DATE: 11/11/2022 10:39 INDICATION: Syncopal episode. Struck head 3 days ago. TECHNIQUE: Computed tomography (CT) of the head was performed without intravenous contrast. The mA wa s adjusted according to patient size. Iterative reconstruction technique was employed. Exam dose: 60 5.33 mGy-cm total exam DLP. COMPARISON: None FINDINGS: No intracranial mass lesion or hemorrhage or cerebrovascular accident. No midline shift or mass effect effect. Normal ventricular size. Normal garcia-white matter differentiation. No subdural or epidural hematoma. The mastoid air cells and included paranasal sinuses are normally developed and aerated. No fracture or bone destruction of the cranial vault. IMPRESSION: Negative Reviewed, dictated and finalized at Location A. Reviewed, dictated and finalized at location A. IMPRESSION: Negative
--- NOTE | ~2022-11-11 | CT_ITS ---
EXAMINATION: CT thoracic lumbar wo con DATE: 11/11/2022 10:39 INDICATION: Sacral episode, fall. Upper thoracic and lower back pain TECHNIQUE: Computed tomography (CT) of the thoracic and lumbar spine was performed without intravenou s contrast. Automated exposure control and iterative reconstruction technique were employed. Exam dos e: 5.92 mGy-cm total exam DLP. COMPARISON: None FINDINGS: No fracture or dislocation or bone destruction of the thoracic spine. Normal alignment of the lumbar spine. Moderately severe degenerative disc disease at L5-S1. There is degenerative change at the apophyseal joints particularly lower lumbar and lumbosacral area. There is depression of the superior vertebral endplate of L3 and to a lesser extent L4 which may be d ue to compression fractures, uncertain age. No other fracture or bone destruction or spondylolisthesis is noted.. IMPRESSION: Depression of the superior vertebral endplates of L3 and to a lesser extent L4, possibly due to compression fractures, of undetermined age. L3 compression fracture in particular may be rece nt. Reviewed, dictated and finalized at Location A. Reviewed, dictated and finalized at location A. IMPRESSION: Depression of the superior vertebral endplates of L3 and to a less er extent L4, possibly due to compression fractures, of undetermined age. L3 co mpression fracture in particular may be recent.
--- NOTE | ~2022-11-11 | CT_ITS ---
EXAMINATION: CT cervical spine wo con DATE: 11/11/2022 10:39 INDICATION: Fall. Neck pain. TECHNIQUE: Computed tomography (CT) of the cervical spine was performed without intravenous contrast. Automated exposure control and iterative reconstruction technique were employed. Exam dose: 450.22 mGy-cm total exam DLP. COMPARISON: None FINDINGS: There is reversal of cervical curvature which may be due to muscle spasm or positioning. C1 and C2 are normally aligned and the odontoid process is intact. No fracture or dislocation or lock ed facet or prevertebral soft tissue swelling is detected. Moderate degenerative disc disease at C4-5. Moderately severe degenerative disc disease at C5-6 and C 6-7. Degenerative change of the apophyseal joints. There is uncovertebral joint spurring on the right at C 2-3 and more prominently at C4-5, C5-6 and C6-7, especially on the right.. IMPRESSION: Reversal of cervical curvature Cervical spondylosis No fracture or dislocation or locked facet Reviewed, dictated and finalized at Location A. Reviewed, dictated and finalized at location A.
--- NOTE | 2022-11-11 09:04 | ECG_ITS ---
Measurements Intervals [place] Rate: 61 P: 51 DC: 150 QRS: 0 QRSD: 92 T: 30 QT: 410 QTc: 413 Interpretive Statements SINUS RHYTHM LOW QRS VOLTAGE IN PRECORDIAL LEADS BASELINE ARTIFACT- I, III, AVR, AVL, AVF BORDERLINE ECG NO PREVIOUS ECG AVAILABLE FOR COMPARISON Electronically Signed On 11-11-2022 12:24:17 CDT by Tanmay Gruber D.O.
[2022-11-11 09:06] VITALS: BP 155/93; PULSE 71; RESP 18; TEMP 36.1; O2SAT 100
[2022-11-11 09:14] LABS: Basophils Absolute Auto 0.1 K/mm3 (0.0-0.1); Basophils Percent Auto 0.7 % (0.2-1.2); Eosinophils Absolute Auto 0.1 K/mm3 (0-0.3); Eosinophils Percent Auto 1.3 % (0-4.4); Hematocrit 44.3 % (37.0-47.0); Hemoglobin 14.9 g/dL (12.0-15.0); Immature Granulocyte Absolute 0.02 K/mm3 (0.00-0.031); Immature Granulocyte Percent A 0.3 % (0-0.5); Lymphocytes Absolute Auto 2.89 K/mm3 (0.9-3.2); Lymphocytes Percent Auto 38.5 % (18.3-44.2); Mean Corpuscular HGB Conc 33.6 g/dl (32-36); Mean Corpuscular Hemoglobin 31.3 pg (26-34); Mean Corpuscular Volume 93.1 fl (80-100); Mean Platelet Volume 9.5 fl (7.4-10.4); Monocytes Absolute Auto 0.6 K/mm3 (0.1-0.6); Neutrophils Absolute Auto 3.8 K/mm3 (1.3-6.7); Neutrophils Percent Auto 51.2 % (45.5-73.1); Platelet Count Result 290 k/mm3 (150-375); Red Blood Count 4.76 M/mm3 (4.2-5.4); Red Cell Distribution Width 14.4 % (11.5-14.5); White Blood Count 7.5 K/mm3 (4.5-10.0)
[2022-11-11 09:26] LABS: Alanine Aminotransferase 18 U/L (6-35); Albumin Level 3.9 g/dL (3.5-5.1); Alkaline Phosphatase 78 U/L (38-126); Anion Gap 2 mmol/L (8-16); Aspartate Amino Transferase 24 U/L (14-36); Bilirubin,Total 0.4 mg/dL (0.2-1.3); Blood Urea Nitrogen 16 mg/dL (7-17); Calcium 8.9 mg/dL (8.4-10.2); Carbon Dioxide 28 mmol/L (22-30); Chloride 108 mmol/L (98-107); Estimated CRCL calculation 112 ml/min; Estimated Glomerular Filt Rate > 60; Glucose 92 mg/dL (65-110); Potassium 4.2 mmol/L (3.4-5.0); Sodium 138 mmol/L (137-145)
--- NOTE | 2022-11-11 10:08 | ED.SYNCOPE ---
HPI - Syncope General Chief Complaint: Syncope Stated Complaint: syncopy Time Seen by Provider: 11/11/22 09:40 History of Present Illness HPI narrative: 46-year-old female with a history of arthralgia of both knees, dorsalgia, chronic pain reports for evaluation for a syncopal episode that happened 3 days ago as well as pain to the lateral aspect of her thighs x6 months. Patient states 3 days ago, she was sitting in her bed and had not eaten anything all day. States her son brought her left over food and she began eating shrimp. States her stomach cramped up from her IBS and so she stood up to go to the bathroom. States she began to felt dizzy and diaphoretic. She then sat on the toilet and lost consciousness. Patient states she woke up to the thump of her head hitting the wall. Shortly after, she had 1 episode of emesis and then stated for 24 hours because she was unsure if she had a concussion. She denies chest pain, shortness of breath, palpitations prior to the fall. She denies history of seizures, alcohol use, drug use or IVDU. She does report using marijuana. The patient is complaining of pain to the right frontal and parietal scalp, neck pain and thoracolumbar pain. She does report she has chronic back pain and is unsure if this pain is changed from her baseline. She denies loss of bowel or bladder control or retention, saddle anesthesia, fevers. She is also reporting pain to the lateral aspect of both of her thighs x6 months. States the pain feels like a ache, reports she feels like someone hit her with a truck. Denies numbness or paresthesias. States her PCP discontinued her from her cholesterol medications thinking it may have been due to that 3 months ago, however the pain still persist. She states she is supposed to see pain management, however her appointments keep getting pushed back because they are in the process of obtaining records from her prior pain management visits at other facilities. Patient states she takes meloxicam for chronic pain which has helped her neck pain and back pain, but has not touched her thigh pain. She denies injury or trauma, paresthesias. The patient did see pain management on 09/10/2022. Notes reviewed. Patient seems to be potentially misusing opioids given poor history and what seems to be doctor shopping. Pain management strongly recommends consideration of physical therapy, interventional therapies and nonnarcotic therapies in an effort to further manage her chronic pain. Related Data Home Medications Medication Instructions Recorded Confirmed atorvastatin 20 mg tablet 20 mg DIRECTED 06/25/22 09/10/22 dicyclomine 10 mg capsule 10 mg DIRECTED 06/25/22 09/10/22 levothyroxine 50 mcg tablet 50 mcg DIRECTED 06/25/22 09/10/22 pantoprazole 40 mg tablet,delayed 40 mg PO DIRECTED 06/25/22 09/10/22 release paroxetine HCl 10 mg tablet 10 mg PO DIRECTED 06/25/22 09/10/22 meloxicam 7.5 mg tablet 7.5 mg PO DAILY 09/10/22 09/10/22 Allergies Allergy/AdvReac Type Severity Reaction Status Date / Time No Known Allergies Allergy Mild Verified 11/11/22 09:11 Review of Systems Review of Systems: CONSTITUTIONAL: Denies fever, chills EYES: Denies visual changes, redness, or discharge. ENT: Denies rhinorrhea, congestion, sore throat, or otalgia. CARDIOVASCULAR: Denies chest pain, palpitations, or edema. RESPIRATORY: Denies cough or dyspnea. GASTROINTESTINAL: Denies abdominal pain, nausea, vomiting, or diarrhea. GENITOURINARY: Denies dysuria or hematuria. SKIN: Denies rash or itching. MUSCULOSKELETAL: See HPI NEUROLOGIC: See HPI PSYCHIATRIC: Denies anxiety or depression. [facility] Past Medical History Medical History No active medical problems Surgical History Surgical History Hx of cholecystectomy Social History Social History (Reviewed 11/11/22 @ 10:23 by Preeti
[2022-11-11 10:22] LABS: Magnesium 1.9 mg/dL (1.6-2.3)
[2022-11-11 10:31] LABS: NT Pro B Type Natriuretic Pept 126 pg/mL (19.9-100)
[2022-11-11] MEDS: CYCLOBENZAPRINE HCL 10 MG TABLET PO (10:39)
[2022-11-11] MEDS: SODIUM CHLORIDE 0.9% IV 1,000 ML 999 ML IV CONT (10:40)
[2022-11-11 11:10] VITALS: BP 152/93; PULSE 53; RESP 20; O2SAT 100
[2022-11-11 12:39] VITALS: BP 166/92; PULSE 60; RESP 18; O2SAT 99
== END 2022-11-11 12:40 | disposition home or self-care (01) ==
PROVIDERS: Emergency Medicine; Emergency Provider Physician Assistant; PCP Emergency Medicine
DX: R55 Syncope and collapse (principal); S09.90XA Unspecified injury of head, initial encounter; S16.1XXA Strain of muscle, fascia and tendon at neck level, initial encounter; S39.012A Strain of muscle, fascia and tendon of lower back, initial encounter; W18.12XA Fall from or off toilet with subsequent striking against object, initial encounter
CPT/HCPCS: 36415; 70450; 72125; 72128; 72131; 80053; 81025; 83735; 83880; 85025; 93005; 96360; 99284; A9270; J7030

== ENCOUNTER 2025-01-31 00:56 | Emergency (ER) | payer SELFPAY ==
[2025-01-31 00:56] VITALS: BP 105/66; PULSE 78; RESP 16; O2SAT 96
--- OUTSIDE RECORDS SUMMARY | 2025-01-31 01:16 | XMS_ITS | Clinical Summary ---
Author Organization [facility] Address [address] [place] [id number] Care Team Providers Care Associate Art Director Name Role Phone Darrick Barbour MD Primary Care Provider [phone] Allergies No known active allergies Medications metroNIDAZOLE (FLAGYL) 500 mg tablet Take 1 tablet (500 mg total) by mouth 3 (three) times a day 21 tablet 3 Active ciprofloxacin (CIPRO) 500 mg tablet Take 1 tablet (500 mg total) by mouth 2 (two) times a day 14 tablet 3 Active albuterol HFA (PROVENTIL HFA,VENTOLIN HFA,PROAIR HFA) 90 mcg/actuation inhaler INHALE 2 PUFFS BY MOUTH FOUR TIMES DAILY NEEDED FOR SHORTNESS OF BREATH OR WHEEZING 3 Active atorvastatin (LIPITOR) 20 mg tablet 3 Active benzonatate (TESSALON) 200 mg capsule TAKE 1 CAPSULE BY MOUTH THREE TIMES DAILY NEEDED FOR COUGH 3 Active cefdinir (OMNICEF) 300 mg capsule 3 Active dicyclomine (BENTYL) 10 mg capsule 3 Active Compact Space Chamber-Lrg Mask spacer USE DIRECTED WITH INHALER 3 Active levothyroxine (SYNTHROID) 75 mcg tablet Take 1 tablet (75 mcg total) by mouth daily 3 Active methocarbamoL (ROBAXIN) 500 mg tablet Take 1 tablet (500 mg total) by mouth 3 (three) times a day 3 Active meloxicam (MOBIC) 7.5 mg tablet Take 1 tablet (7.5 mg total) by mouth daily 3 Active omeprazole (PriLOSEC) 40 mg capsule [address] (PROTONIX) 40 mg EC tablet 3 Active PARoxetine (PAXIL) 30 mg tablet 3 Active Active Problems No known active problems Social History Tobacco Use Types Packs/Day Years Used Date Smoking Tobacco: Unknown Tobacco Cessation:Counseling Given: Not Answered Personal Safety Answer Date Recorded Getting School Help Needed Not on file 08/07 Comments No Sex and Gender Information Value Date Recorded Sex Assigned at Not on file 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 Gender Identity Not on file Sexual Orientation Not on file Last Filed Vital Signs Vital Sign Reading Time Taken Comments Blood Pressure 154/115 07/03/2022 2:10 PM CDT Pulse 64 07/03/2022 2:10 PM CDT Temperature 36.7 C (98.1 F) 07/03/2022 9:06 AM CDT Respiratory Rate 20 07/03/2022 11:41 AM CDT Oxygen Saturation 99% 07/03/2022 2:10 PM CDT Inhaled Oxygen Concentration - - Weight 118.4 kg (261 lb) 08/29/2022 9:59 AM CDT Height 170.2 cm (5' 7) 08/29/2022 9:59 AM CDT Body Mass Index 40.88 08/29/2022 9:59 AM CDT Plan of Treatment Health Maintenance Due Date Last Done Comments Breast Cancer Screening-Mammogram 1975 Cervical Cancer Screening 1975 Colon Cancer Screening-Colonoscopy 1975 Depression Screening 1975 Hepatitis C Screening 1975 DTaP/Tdap/Td Vaccine (1 - Tdap) 12/10/1986 Hepatitis B Screening 12/10/1993 Regular Well Visit/Exam 18-64 12/10/1993 Influenza Vaccine (#1) 2024 Pneumococcal vaccine <65 Aged Out No longer eligible based on patient's age to complete this topic Insurance Care Teams Associate Art Director Relationship Specialty Start Date End Date Darrick Barbour MD PCP - General Emergency Medicine 07/03/22
--- OUTSIDE RECORDS SUMMARY | 2025-01-31 01:16 | XMS_ITS | Encounter Summary ---
Author Organization [facility] Address [address] [place] [address] Care Team Providers Care Oyster Cultivator Name Role Phone Darrick Barbour MD Primary Care Provider [phone] Reason for Visit * Reason Comments Refill Request Encounter Details Date Type Department Care Team (Late st Contact Info) Description 08/02/2023 Refill [facility] - Neurosurgery [address] [place] [address], [place] [id number] Marj Betancur MD [address] [place] [address] [place] [address] Refill Request Social History Tobacco Use Types Packs/Day Years Used Date Smoking Tobacco: Former Cigarettes 0 Q uit: 04/2023 Smokeless Tobacco: Never Alcohol Use Standard Drinks/Week Comments Not Currently 0 (1 standard drink = 0.6 oz pur e alcohol) AUDIT-C Answer Date Recorded Q1: How often do you have a drink containing alcohol? Never 07/10/2023 Q2: How many drinks containi ng alcohol do you have on a typical day when you are drinking? Patient does not drink Q3: How often do you have si x or more drinks on one occasion? Never 07/10/2023 Overall Financial Resource Strain (CARDIA) Answe r Date Recorded How hard is it for you to pa y for the very basics like food, housing, medical care, and heating? Very hard 07/11/2023 PHQ-2 Answer Date Recorded PHQ2 TOTAL SCORE 3 08/13/2022 [employer] [facility] - Occupational Stress Questionnaire Answer Date Recorded Do you feel stress - tense, restless, nervous, or anxious, or unable to sleep at night because your mind is troubled all the time - these days? To some extent 07/11/2023 Hunger Vital Sign Answer Date Recorded Within the past 12 months, y ou worried that your food would run out before you got the money to buy more. Sometimes true Within the past 12 months, t he food you bought just didn't last and you didn't have money to get more. Sometimes true 11/2023 PRAPARE - Transportation Answer Date Re corded In the past 12 months, has l ack of transportation kept you from medical appointments or from getting medications? No 11/2023 In the past 12 months, has l ack of transportation kept you from meetings, work, or from getting things needed for daily living? No 07/11/2023 Housing Stability Vital Sign Answer Eric e Recorded In the last 12 months, was t here a time when you were not able to pay the mortgage or rent on time? No 07/11/2023 In the last 12 months, how many places have you lived? 1 07/11/2023 In the last 12 months, was t here a time when you did not have a steady place to sleep or slept in a halfway (including now)? 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 Answer Date of Assessment Author No 07/10/2023 10:49 PM Que Lux, CLAU * Is person blind or have serious difficulty seeing? Answer Date of Assessment Author No 07/10/2023 10:49 PM Que Lux, CLAU * Does person have serious difficulty walking/climbing stairs? Answer Date of Assessment Author No 07/10/2023 10:49 PM Que Lux, CLAU * Does person have difficulty dressing/bathing? Answer Date of Assessment Author No 07/10/2023 10:49 PM Qeu Lux RN * Does person have difficulty doing errands alone? Answer Date of Assessment Author No 07/10/2023 10:49 PM Que Lux RN documented as of this encounter Mental Status * Does person have difficulty concentrating/remembering/making decisions? Answer Entry Date Author No 07/10/2023 10:49 PM Que Lux RN documented in this encounter Plan of Treatment Not on file documented as of this encounter Visit Diagnoses Diagnosis Spasm of muscle documented in this encounter Care Teams Oyster Cultivator Relationship Specialty Start Date End Date Darrick Barbour MD [address] [place] [id number] PCP - General Family Medicine 12/04/22 documented as of this encounter
--- OUTSIDE RECORDS SUMMARY | 2025-01-31 01:16 | XMS_ITS | Encounter Summary ---
Author Organization [facility] Health Address [address] [facility] [place] [address] Care Team Providers Care Senior Internet Sales Consultant Name Role Phone Darrick Barbour MD Primary Care Provider [phone] Encounter Details Date Type Department Care Team (Late st Contact Info) Description 07/10/2023 Lab Requisition [facility] [address] [place] [id number] Bharathi May, INSPECTOR MACHINE [facility] [address] [address] Social History Tobacco Use Types Packs/Day Years [...] Date Recorded PHQ2 TOTAL SCORE 3 08/13/2022 [facility] [place] [facility] Occupat ional Health - Occupational Stress [...] place to sleep or slept in a nursing home (including now)? 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 No 07/10/2023 10:49 PM Nida Lux RN Is person blind or have seri ous difficulty seeing? No 07/10/2023 10:49 PM Nida Lux RN Does person have serious dif ficulty walking/climbing stairs? No 07/10/2023 10:49 PM Nida Lux RN Does person have difficulty dressing/bathing? No 07/10/2023 10:49 PM Nida Lux RN Does person have difficulty doing errands alone? No 07/10/2023 10:49 PM Nida Lux RN Does person have difficulty concentrating/remembering/making decisions? No 07/10/2023 10:49 PM CDT Nida Hameed RN * Question Answer Date of Assessment Author Q1: How often do you have a drink containing alcohol? Never 07/10/2023 10:13 AM Ayde Bonds RN Q2: How many drinks containing alcohol do you have on a typical day when you are drinking? Patient does not drink 07/10/2023 10:13 AM Ayde Bonds RN Q3: How often do you have six or more drinks on one occasion? Never 07/10/2023 10:13 AM Ayde Bonds RN * AUDIT-C Score Answer Date of Assessment Author 0 07/10/2023 10:13 AM MARCET Leo Dias RN documented as of this encounter Plan of Treatment Not on file documented as of this encounter Procedures Procedure Name Priority Date/Time Associated Diagnosis Comments HEPATITIS C AB SCREEN RFLX NAAT QUANT STAT 07/10/2023 5:35 PM CDT HIV-1 HIV-2 ANTIBODY + HIV P24 AG PANEL Routine 07/10/2023 5:35 PM CDT HEPATITIS B SURFACE ANTIGEN W RFLX CONFIRMATION Routine 07/10/2023 5:35 PM CDT documented in this encounter Results * HEPATITIS C AB SCREEN RFLX NAAT QUANT (07/10/2023 5:35 PM CDT) [facility] Hepatitis C Antibody Non-react janette Non-reac tive 07/10/2023 6:40 PM CDT [facility] Comment:Hepatitis C Antibody screen indicates no serologic evidence of past or current infection with Hepatitis C Virus. Patients with unexplained liver disease who are immunocompromised or suspected of having acute Hepatitis C infection may benefit from Nucleic Acid Test (JOSEE) for Hepatitis C Viral RNA to confirm Hepatitis C status. Blood BLOOD SPECIMEN / Unknown 07/10/2023 5:35 PM CDT 07/10/2023 5:49 PM CDT Bharathi May INSPECTOR MACHINE [facility] LAB - CHEMISTRY ORDERAB LES Final Result [address] [address], [place] [phone] * HEPATITIS B SURFACE ANTIGEN W RFLX CONFIRMATION (07/10/2023 5:35 PM CDT) Hepatitis B Virus Surface Antigen Non-reacti ve Non-reacti ve 07/10/2023 6:40 PM CDT [facility] Blood BLOOD SPECIMEN / Unknown 07/10/2023 5:35 PM CDT 07/10/2023 5:49 PM CDT Bharathi May INSPECTOR MACHINE [facility] LAB - CHEMISTRY ORDERAB LES Final Result Performing Organization Address [facility]/ZIP Co de Phone Number [address] [address], [place] [phone] * HIV-1 HIV-2 ANTIBODY + HIV P24 AG PANEL (07/10/2023 5:35 PM CDT) HIV Antigen/Antibod y 1 & 2 Non-reacti ve Non-react janette 07/10/2023 6:40 PM CDT [facility] Comment:No Laboratory eviden ce of HIV infection. Blood BLOOD SPECIMEN / Unknown 07/10/2023 5:35 PM CDT 07/10/2023 5:49 PM CDT Bharathi May INSPECTOR MACHINE [facility] LAB - CHEMISTRY ORDERAB LES Final Result [address] [address], [place] [phone] documented in this encounter Visit Diagnoses Not on filedocumented in this encounter Care Teams Senior Internet Sales Consultant Relationship Specialty Start Date End Date Darrick Barbour MD [address] [facility] [address] [place] [address] PCP - General Family Medicine 12/04/22 documented as of this encounter
--- OUTSIDE RECORDS SUMMARY | 2025-01-31 01:16 | XMS_ITS | Encounter Summary ---
Author Organization [facility] Address [address] [facility] [place] [address] Care Team Providers Care Architectural Project Manager Name Role Phone Darrick Barbour MD Primary Care Provider [phone] Encounter Details Date Type Department Care Team (Late st Contact Info) Description 09/19/2022 Telephone [facility] - Centralized Scheduling [facility] [place] [id number] Nagi Palacios MD [facility] [place] [address] Social History Tobacco Use Types Packs/Day Years Used Date Smoking Tobacco: Never Assessed PHQ-2 Answer Date Recorded PHQ2 TOTAL SCORE 3 08/13/2022 Comments Unknown Sex and Gender Information Value Date Recorded Sex Assigned at Not on file 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 She was told by her production painter and pcp that the meloxicam & Paroxetine 30mg should not be taken together. She really does not want to stop taking the meloxicam and needs help on what she should be taking. Patient Call Back number: [phone] documented in this encounter Plan of Treatment Not on file documented as of this encounter Visit Diagnoses Not on filedocumented in this encounter Care Teams Architectural Project Manager Relationship Specialty Start Date End Date Darrick Barbour MD [address] [place] [id number] PCP - General Family Medicine 12/04/22 documented as of this encounter
--- OUTSIDE RECORDS SUMMARY | 2025-01-31 01:16 | XMS_ITS | Clinical Summary ---
Author Organization [facility] Address [address] [place] [address] Care Team Providers Care Conduit Helper Name Role Phone Darrick Barbour MD Primary Care Provider [phone] Source Comments [facility],non-owned Affiliates and Associated Physician Practices is amultiple site organization consisting of ambulatory clinics and hospital sitesin [place], [place], [place] and [place]. This disclosure is being madepursuant to the Care Everywhere program and may not contain all information available regarding this patient. Last updated 17.[facility] Allergies No known active allergies Medications * Be aware that medications may not be up to date on this document. Alwaysverify current medications with the patient. dicyclomine (Bentyl) 10 MG capsule Take 1 (one) capsule by mouth once daily 10/10/19 23 Active omeprazole (PriLOSEC) 40 MG capsule Take 1 (one) capsule by mouth at bedtime 11/13/19 23 Active ascorbic acid (Vitamin C) 250 MG tabletIndications: Other insomnia Take 1 (one) tablet by mouth 2 times daily 180 tablet 11 12/05/19 23 Active DULoxetine (Cymbalta) 60 MG capsule Take 1 (one) capsule by mouth once daily As Directed. 03/21/19 24 Active losartan (Cozaar) 50 MG tablet 03/15/19 24 Active cyclobenzaprine (Flexeril) 10 MG tabletIndications: Spasm of muscle Take 1 (one) tablet by mouth 3 times daily as needed for Muscle Spasms 30 tablet 1 05/31/19 24 Active traZODone (Desyrel) 100 MG tablet Take 1 (one) tablet by mouth 05/30/19 24 Active ferrous sulfate 325 (65 FE) MG tabletIndications: Iron deficiency anemia due to chronic blood loss Take 1 (one) tablet by mouth daily with breakfast 180 tablet 11 06/06/19 24 Active acetaminophen (Tylenol) 325 MG tablet Take 2 (two) tablets by mouth every 6 hours as needed Maximum allowable Acetaminophen amount = 4 Grams (4000 mg) / 24 hours. 07/12/19 24 Active docusate sodium (Colace) 100 MG capsule TAKE ONE CAPSULE BY MOUTH ONCE DAILY NEEDED FOR CONSTIPATION 30 capsule 07/12/19 24 Active cyclobenzaprine (Flexeril) 10 MG tabletIndications: Other muscle spasm TAKE ONE TABLET BY MOUTH 3 TIMES A DAY NEEDED FOR MUSCLE SPASMS 90 tablet 2 09/16/19 24 Active atorvastatin (Lipitor) 20 MG tabletIndications: Mixed hyperlipidemia Take 1 (one) tablet by mouth once daily 90 tablet 11 12/06/19 24 Active hydroCHLOROthiazid e (Hydrodiuril) 25 MG tabletIndications: Essential hypertension Take 1 (one) tablet by mouth once daily 90 tablet 4 12/06/19 24 Active meloxicam (Mobic) 15 MG tabletIndications: Myalgia TAKE 1 TABLET BY MOUTH EVERY DAY 90 tablet 11 03/06/19 25 Active levothyroxine (Synthroid) 75 MCG tabletIndications: Hypothyroidism, acquired Take 1 (one) tablet by mouth once daily 90 tablet 4 05/14/19 25 Active Active Problems Problem Noted Date Diagnosed Date Hypothyroidism, acquired 12/06/2023 Cervical myelopathy 07/10/2023 Social History Tobacco Use Types Packs/Day Years Used Date Smoking Tobacco: Former Cigarettes 0 Q uit: 04/2023 Smokeless Tobacco: Never Tobacco Cessation:Counseling Given: Not Answered Alcohol Use Standard Drinks/Week Comments Not Currently [...] Date Recorded PHQ2 TOTAL SCORE 3 08/13/2022 [facility] - Occupational Stress [...] place to sleep or slept in a skilled nursing (including now)? 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 Gender Identity Not on file Sexual Orientation Not on file Last Filed Vital Signs Vital Sign Reading Time Taken Comments Blood Pressure 113/79 12/06/2023 1:37 PM CDT Pulse 76 12/06/2023 1:37 PM CDT Temperature 36.3 C (97.4 F) 07/25/2023 2:19 PM CDT Respiratory Rate 18 07/12/2023 8:03 AM CDT Oxygen Saturation 95% 12/06/2023 1:37 PM CDT Inhaled Oxygen Concentration - - Weight 81.8 kg (180 lb 6.4 oz) 12/06/2023 1:37 P M CDT Height 170.2 cm (5' 7) 07/25/2023 2:19 PM CDT Body Mass Index 28.25 07/25/2023 2:19 PM CDT Plan of Treatment Health Maintenance Due Date Last Done Comments COLOGUARD (AGES 45-75) - COLON CA SCREENING 1975 COLON MONITORING 1975 COLONOSCOPY - COLON CA SCREENING 1975 CT COLONOGRAPHY - COLON CA SCREENING 1975 Colorectal Cancer Screening 1975 FIT - COLON CA SCREENING 1975 FLEX SIG - COLON CA SCREENING 1975 MAMMOGRAM 1975 DTAP/TDAP/TD VACCINES (1 - Tdap) 12/10/1994 HEPATITIS B VACCINE (1 of 3 - 19+ 3-dose series) 12/10/1994 Cervical Cancer Screening 12/10/1996 PAP SMEAR 12/10/1996 PAP with HPV 12/10/2005 DEPRESSION SCREENING 03/04/2024 COVID-19 VACCINE (1 - season) 2024 INFLUENZA VACCINE (#1) 2024 ZOSTER VACCINE (1 of 2) 12/10/2025 SCREENING FOR DIABETES 12/19/2026 , 07/12/2023, 07/11/2023, Additional history exists HEPATITIS C SCREENING Completed 07/10/2023 HIV SCREENING Completed 07/10/2023 HIB VACCINE Aged Out No longer eligi ble based on patient's age to complete this topic HPV VACCINE Aged Out No longer eligi ble based on patient's age to complete this topic MENINGOCOCCAL (Group B) VACCINE SHARED DECISION-MAKING Aged Out No longer eligible based on patient's age to complete this topic MENINGOCOCCAL GROUPS A/C/Y/W VACCINE Aged Out No longer eligible based on patient's age to complete this topic Medical Devices Implanted Type Area Manager Of Customer Billing Device Identifier Shelf Expiration Date Model / Serial / Lot Asr Cortical Cancellous Block Implanted:Qty: 1 on 07/10/2023 by Alhaji Reed MD at [facility] Bone N/A: Spine Cervical Rti [employer] 05/13/2026 [id number] / [id number] / [id number] Graft Bone Crstn Asr Damir [facility] Spcr - [id number] Implanted:Qty: 1 on 07/10/2023 by Alhaji Reed MD at [facility] Bone N/A: Spine Cervical Spinal [employer] 03/07/2026 [id number] / [id number] / [id number] Graft Bone Crstn Asr Damir [facility] 14 - [id number] Implanted:Qty: 1 on 07/10/2023 by Alhaji Reed MD at [facility] N/A: Spine Cervical Spinal [employer] 05/13/2026 [id number] / [id number] / [id number] Plate 3 Lvl Spne Crv Ant 55mm Zevo Ti Implanted:Qty: 1 on 07/10/2023 by Alhaji Reed MD at [facility] N/A: Spine Cervical [employer] [id number] / / Screw 3.5mm 15mm Desmond Slf Drl Spne Crv Implanted:Qty: 8 on 07/10/2023 by Alhaji Reed MD at [facility] N/A: Spine Cervical [employer] [id number] / / Procedures Procedure Name Priority Date/Time Associated Diagnosis Comments COMPREHENSIVE METABOLIC PANEL Routine 12/20/2023 1:48 PM CDT Primary hypertension HEPATITIS C AB SCREEN RFLX NAAT QUANT STAT 07/10/2023 5:35 PM CDT HIV-1 HIV-2 ANTIBODY + HIV P24 AG PANEL Routine 07/10/2023 5:35 PM CDT from Last 3 Months or Most Recently Relevant to Health Maintenance Results * COMPREHENSIVE METABOLIC PANEL (12/20/2023 1:48 PM CDT) Glucose 82 65 - 99 mg/dL [facility] Comment: Fasting reference interval BUN 17 7 - 25 mg/dL [facility] Creatinine 0.85 0.50 - 0.99 mg/dL [facility] eGFR by Cystatin C 84 > OR = 60 mL/min/1. 73m2 [facility] BUN/Creatinine Ratio SEE NOTE: 6 22 (calc) [facility] Comment: Not Reported: BUN and Creatinine are within reference range. Sodium 143 135 - 146 mmol/L [facility] Potassium 4.2 3.5 - 5.3 mmol/L [facility] Chloride 105 98 - 110 mmol/L [facility] CO2 31 20 - 32 mmol/L [facility] Calcium 9.9 8.6 - 10.2 mg/dL [facility] Protein Total 6.5 6.1 - 8.1 g/dL [facility] Albumin 4.2 3.6 - 5.1 g/dL [facility] Globulin Total 2.3 1.9 - 3.7 g/dL (calc) [facility] Albumin/Globulin Ratio 1.8 1.0 - 2.5 (calc) [facility] Bilirubin Total 0.4 0.2 - 1.2 mg/dL [facility] Alkaline Phosphatase 67 31 - 125 U/L [facility] AST 16 10 - 35 U/L [facility] ALT 12 6 - 29 U/L [facility] Comment: Test Performed at: [id number] [address] MEENU DEL ROSARIO MD Blood BLOOD SPECIMEN / Unknown 12/20/2023 1:48 PM CDT 12/20/2023 1:50 PM CDT Nagi Palacios MD LAB - CHEMISTRY ORDERABLES Fin al Result [address] [address] * HEPATITIS C AB SCREEN RFLX NAAT QUANT (07/10/2023 5:35 PM CDT) Hepatitis C Antibody Non-react janette Non-reac tive 07/10/2023 6:40 PM CDT [facility] Comment:Hepatitis C Antibody screen [...] CDT 07/10/2023 5:49 PM CDT Bharathi May MAILING MANAGER-MINE FOREMAN LAB - CHEMISTRY ORDERAB LES Final Result [facility] [address] [place] [address], [place] [phone] * HIV-1 HIV-2 ANTIBODY + HIV P24 AG PANEL (07/10/2023 5:35 PM CDT) HIV Antigen/Antibod y 1 & 2 Non-reacti ve Non-react janette 07/10/2023 6:40 PM CDT [facility] Comment:No Laboratory eviden ce of HIV infection. Blood BLOOD SPECIMEN / Unknown 07/10/2023 5:35 PM CDT 07/10/2023 5:49 PM CDT Bharathi May MAILING MANAGER-MINE FOREMAN LAB - CHEMISTRY ORDERAB LES Final Result Performing Organization Address City/[facility]/ZIP Co de Phone Number [facility] [address] [place] [address], [place] [phone] from Last 3 Months or Most Recently Relevant to Health Maintenance Insurance [facility] Advance Directives * Full Code (Latest Code Status on File) Date Activated Date Inactivated Comments 07/10/2023 6:18 PM 07/12/2023 2:02 PM * Full Code Date Activated Date Inactivated Comments 07/10/2023 6:18 PM 07/10/2023 6:18 PM Care Teams Conduit Helper Relationship Specialty Start Date End Date Darrick Barbour MD [address] [place] [id number] PCP - General Family Medicine 12/04/22
--- NOTE | 2025-01-31 01:20 | ED.NAVMDI ---
HPI - Nausea/Vomiting/Diarrhea General Chief complaint: Back Pain/Injury Stated complaint: Back pain and vomit History of Present Illness HPI Narrative: Patient was drinking alcohol today, and to the dose of her prescribed Vicodin for her back pain, then started getting very sick to her stomach and throwing up, called EMS. EMS arrived, gave her a dose of Zofran and IV fluids, by the time she is here, she is denying any complaints whatsoever. She is no longer nauseous, she has no abdominal pain, her back pain has also resolved. Related Data Home Medications ?Medication ?Instructions ?Recorded ?Confirmed ?Last Taken ?Type atorvastatin 20 mg tablet 20 mg DIRECTED 06/25/22 09/10/22 Unknown History dicyclomine 10 mg capsule 10 mg DIRECTED 06/25/22 09/10/22 Unknown History levothyroxine 50 mcg tablet 50 mcg DIRECTED 06/25/22 09/10/22 Unknown History paroxetine HCl 10 mg tablet 10 mg PO DIRECTED 06/25/22 09/10/22 Unknown History meloxicam 7.5 mg tablet 7.5 mg PO DAILY 09/10/22 09/10/22 Unknown History Allergies Allergy/AdvReac Type Severity Reaction Status Date / Time No Known Allergies Allergy Mild Verified 11/20/22 08:57 Review of Systems Review of Systems: All systems reviewed & are unremarkable except as noted in HPI and below PMFSH Past Medical History Medical History No active medical problems Surgical History Surgical History Hx of cholecystectomy Social History Social History Smoking status: Smoker, status unknown Substance use: current Substance use type: marijuana Living arrangements: with family Gender identity (if verbalized by the patient): Female Exam Narrative: EXAMINATION OF ORGAN SYSTEMS/BODY AREAS: Constitutional: Vital signs per nursing GENERAL:[No acute distress, non-toxic appearing.] HEAD: Normal with no signs of head trauma. EYES: EOMI, conjunctiva normal ENT: Hearing grossly intact LUNGS: Nonlabored breathing. HEART: [Regular rate and rhythm] ABD: [Soft], [nontender to palpation] EXT: Normal range of motion SKIN: [No rashes or lesions.] NEURO: [Alert and oriented x 3. No gross focal sensory or strength deficits.] PSYCH: Normal affect Course Vital Signs Vital signs: Vital Signs Pulse Rate 78 01/31/25 00:56 Respiratory Rate 16 01/31/25 00:56 Blood Pressure 105/66 01/31/25 00:56 Pulse Oximetry 96 01/31/25 00:56 Oxygen Delivery Room Air 01/31/25 00:56 Pulse Rate 78 01/31/25 00:56 Respiratory Rate 16 01/31/25 00:56 Blood Pressure 105/66 01/31/25 00:56 Pulse Oximetry 96 01/31/25 00:56 Oxygen Delivery Room Air 01/31/25 00:56 MDM - Nausea/Vomiting/Diarrhea MDM Narrative Medical decision making narrative: Patient presents here with nausea after mixing pain medicine with alcohol. She was given Zofran and fluids by EMS, on my evaluation, she is not having any symptoms whatsoever. No nausea, no abdominal pain, abdomen soft nontender, she is well-appearing no distress, her back pain has also resolved. No focal numbness or weakness. Happy to go home now, family at bedside, vital signs stable, will provide prescription for Zofran in case her symptoms return. Patient agreeable to plan Lab Data Labs: Lab Results 01/31/25 Range/Units 01:10 POC Capillary Glucose 98 (65-105) mg/dl Discharge Plan Discharge Clinical Impression: Nausea Patient Disposition: Home Condition: Stable Instructions: Acute Nausea and Vomiting (ED) Additional Instructions: Please follow up with your doctor; you can always return for any further issues. Patient Language: Mongolian Prescriptions: New ondansetron 4 mg tablet,disintegrating 4 mg PO Q8H PRN (Reason: nausea and vomiting) Qty: 10 0RF No Action paroxetine HCl 10 mg tablet 10 mg PO DIRECTED atorvastatin 20 mg tablet 20 mg DIRECTED levothyroxine 50 mcg tablet 50 mcg DIRECTED dicyclomine 10 mg capsule 10 mg DIRECTED albuterol sulfate 90 mcg/actuation HFA aerosol inhaler 2 puff inhalation QID PRN (Reason: shortness of breath or wheezing) Qty: 8.5 0RF (DME) Aerochamber Plus Z Stat Spacer See Rx Instructions .Route Qty: 1 0RF Rx Instructions: As directed meloxicam 7.5 mg tablet 7.5 mg PO DAILY cyclobenzaprine 10 mg tablet 10 mg PO TID PRN (Reason: muscle spasm) Qty: 14 0RF Follow-up/Referrals: Darrick Barbour MD [Primary Care Provider, Family Practice] - 2 Days
[2025-01-31 01:33] VITALS: BP 108/77; PULSE 66; RESP 16; TEMP 37.1; O2SAT 96
== END 2025-01-31 01:35 | disposition home or self-care (01) ==
PROVIDERS: Emergency Provider Emergency Medicine; PCP Emergency Medicine
DX: R11.0 Nausea (principal); Z90.49 Acquired absence of other specified parts of digestive tract
CPT/HCPCS: 82948; 99283